=== PATIENT | female | born 1985 | race African-American/Black ===

== ENCOUNTER 2019-12-07 19:08 | Emergency (ER) | payer OTHER ==
[~2019-12-07] VITALS: Ht 160 cm; Wt 69.4 kg
[~2019-12-07 19:08] MED LIST: BACTRIM DS TAB1 EACH PO; CIPRO250 M2 PO; COLACE1 EAC1; COLACE100 MG; CORTISPORIN OTI10 ML OTIC; DIFLUCAN150 M1 PO; DOXYCYCLINE 10100 MG PO; FLAGYL500 MG PO; FLEXERIL PO; IBUPROFEN 600600 M1 PO; IBUPROFEN 800800 M1 PO; IBUPROFEN 800800 MG PO; METOCLOPRAMIDE10 MG; NOHOMEMEDICATIONS; NORCO 5-325 TA1 EACH PO; ONDANSETRON ODT4 MG; PERCOCET 5-3251 EACH PO; PERCOCET 7.5-31 EACH PO; PHENERGAN 25 MG25 M1 PO; PYRIDIUM200 MG PO; TYLENOL COLD C1 EAC1; ULTRAM 50MG TAB50 MG PO; VALIUM5 MG PO; ZOFRAN ODT4 MG PO; [UNRECOGNIZED DRUG - OTHER] PO
[2019-12-07 21:55] LABS: URINE BILIRUBIN NEGATIVE (Negative); URINE BLOOD 1+ (Negative); URINE CLARITY CLEAR; URINE COLOR YELLOW; URINE GLUCOSE-RANDOM* NEGATIVE (Negative); URINE KETONES NEGATIVE (Negative); URINE LEUKOCYTES-REFLEX NEGATIVE (Negative); URINE NITRITE-REFLEX NEGATIVE (Negative); URINE PROTEIN (DIPSTICK) NEGATIVE (Negative); URINE SPECIFIC GRAVITY 1.025 (1.005-1.035); URINE UROBILINOGEN 0.2 E.U./dl (0.2-1.0)
[2019-12-07 22:09] LABS: SQUAMOUS 0-3 Few /LPF (0-3)
[2019-12-07 22:10] LABS: BACTERIA-REFLEX 1-9 Few /HPF (None Seen); CASTS None Seen /LPF (None Seen); CRYSTALS None Seen /LPF (None Seen); URINE RBC 0-2 Rare /HPF (0-2); URINE WBC-REFLEX None Seen /HPF (0-5)
[2019-12-07 22:27] LABS: CALCIUM 8.7 mg/dL (8.5-10.1); CREATININE 0.7 mg/dL (0.6-1.0); POTASSIUM 4.3 mmol/L (3.5-5.1)
[2019-12-07 22:32] LABS: ABSOLUTE NEUTROPHILS 3.2 thou/uL (1.4-8.2); BASOPHILS 0.8 % (0.0-2.0); EOSINOPHILS 2.2 % (0.0-3.0); HEMATOCRIT 38.6 % (37.0-47.0); HEMOGLOBIN 12.2 gm/dL (12.0-15.0); LYMPHOCYTES 43.9 % (24.0-44.0); MCH 24.3 pg (26.0-34.0); MCHC 31.6 g/dL (28.0-37.0); MCV 76.8 fL (80.0-100.0); MONOCYTES 4.1 % (1.0-8.0); PLATELET COUNT 228 thou/uL (150-400); RBC 5.02 mil/uL (4.20-5.00); RDW 17.4 % (10.5-14.5); WBC 6.6 thou/uL (4.0-11.0)
[2019-12-07 22:33] LABS: ALBUMIN 4.1 g/dL (3.4-5.0); TOTAL BILIRUBIN 0.3 mg/dL (<0.1-1.0); TOTAL PROTEIN 7.4 g/dL (6.4-8.2)
[2019-12-07] MEDS ORDERED: CIPRO500 M1 PO (22:48)
[2019-12-07] MEDS ORDERED: BENTYL 20 MG TA20 M1 PO (22:48)
[2019-12-07] MEDS ORDERED: TRAMADOL 50 MG50 MG PO (22:48)
[2019-12-08 00:14] VITALS: BP 108/72
== END 2019-12-08 00:15 | disposition home or self-care (01) ==
LOC: ER 19:08
PROVIDERS: Nurse Practitioner Family
DX: R19.7 Diarrhea, unspecified (principal); N39.0 Urinary tract infection, site not specified; M54.5 Low back pain; K21.9 Gastro-esophageal reflux disease without esophagitis; Z87.891 Personal history of nicotine dependence

== ENCOUNTER 2020-04-01 19:30 | Emergency (ER) | payer OTHER ==
[~2020-04-01] VITALS: Ht 160 cm; Wt 72.6 kg
[~2020-04-01 19:30] MED LIST changes: +BENTYL 20 MG TA20 M1 PO; +CIPRO500 M1 PO; +TRAMADOL 50 MG50 MG PO
[2020-04-01] MEDS ORDERED: NOHOMEMEDICATIONS (19:37)
[2020-04-01] MEDS ORDERED: ULTRAM 50MG TAB50 MG PO (20:15)
[2020-04-01 20:50] VITALS: BP 134/77
== END 2020-04-01 20:50 | disposition home or self-care (01) ==
LOC: ER 19:30
DX: M65.4 Radial styloid tenosynovitis [de Quervain] (principal); K21.9 Gastro-esophageal reflux disease without esophagitis; F17.210 Nicotine dependence, cigarettes, uncomplicated; Z98.890 Other specified postprocedural states; Z90.49 Acquired absence of other specified parts of digestive tract; Z86.14 Personal history of Methicillin resistant Staphylococcus aureus infection; Z85.831 Personal history of malignant neoplasm of soft tissue

== ENCOUNTER 2020-07-10 14:48 | Emergency (ER) | payer OTHER ==
[~2020-07-10] VITALS: Ht 160 cm; Wt 77.1 kg
[2020-07-10] MEDS ORDERED: CYCLOBENZAPRINE5 MG PO (18:02)
[2020-07-10] MEDS ORDERED: NORCO 5-325 TA1 EAC2 PO (18:02)
[2020-07-10 18:14] VITALS: BP 101/68
== END 2020-07-10 18:14 | disposition home or self-care (01) ==
LOC: ER 14:48
DX: M43.6 Torticollis (principal); M54.9 Dorsalgia, unspecified; K21.9 Gastro-esophageal reflux disease without esophagitis; F17.210 Nicotine dependence, cigarettes, uncomplicated